=== PATIENT | female | born 1950 | race Two or more races ===

== ENCOUNTER 2017-12-18 06:58 | Inpatient (IN) | payer OTHER ==
[~2017-12-18] VITALS: Ht 137.2 cm; Wt 59.4 kg
[~2017-12-18 06:58] MED LIST: BACITRACIN 50000 UNITS/VIAL ONE; BUPIVACAINE 0.5 % PF 150 MG/30 ML VIAL ONE; KETOROLAC TROMETHAMINE INJ 30 MG/ML VIAL ONE
[2017-12-18] MEDS ORDERED: CLINDAMYCIN IV RTU IN D5W 50 ML ONE (07:21)
[2017-12-18] MEDS ORDERED: oxyCODONE HCL SR 10MG TAB.SR.12H PO ONE (07:21)
[2017-12-18] MEDS ORDERED: ACETAMINOPHEN 325 MG TABLET ONE (07:21)
[2017-12-18] MEDS ORDERED: CELECOXIB 100 MG CAPSULE ONE (07:21)
[2017-12-18] MEDS ORDERED: TRANEXAMIC ACID 3,000 MG in SODIUM CHLORIDE IRRIG SOLUTION 70 ML IR ONE (07:30)
[2017-12-18] MEDS ORDERED: FENTANYL PF 100MCG/2ML AMPUL ONE (08:26)
[2017-12-18] MEDS ORDERED: CLINDAMYCIN 900 MG/6 ML VIAL ONE (08:27)
[2017-12-18 11:00] VITALS: BP 108/68
[2017-12-18] MEDS ORDERED: TYLENOL 650 MG TABLET PO PRN (12:30)
[2017-12-18] MEDS ORDERED: SENOKOT 8.6 MG TABLET PO PRN (12:30)
[2017-12-18] MEDS ORDERED: COLACE 250 MG CAPSULE PO PRN (12:30)
[2017-12-18] MEDS ORDERED: DULCOLAX 10 MG/SUPP.RECT RC PRN (12:30)
[2017-12-18] MEDS ORDERED: ZOFRAN 4mg/2ML IV PRN (12:30)
[2017-12-18] MEDS ORDERED: HYDROCODONE/APAP 5/325MG 1 EACH TABLET PO PRN (12:30)
[2017-12-18] MEDS ORDERED: LOSA100T15 PO (12:39)
[2017-12-18] MEDS ORDERED: HYDR-548 PO (12:39)
[2017-12-18] MEDS ORDERED: PRAV10TA40 PO (12:39)
[2017-12-18] MEDS ORDERED: DILT240C53 PO (12:39)
[2017-12-18] MEDS ORDERED: ONDANSETRON HCL/PF 4 MG/2 ML VIAL IV PRN (13:00)
[2017-12-18] MEDS ORDERED: PROMETHAZINE HCL 25 MG/ML AMPUL IM PRN (13:00)
[2017-12-18] MEDS ORDERED: BISACODYL SUPP (10 MG) 10 MG/SUPP.RECT SUPP.RECT RC PRN (13:00)
[2017-12-18] MEDS ORDERED: MORPHINE SULFATE INJ 4 MG/ML DISP.SYRIN IM PRN (13:00)
[2017-12-18] MEDS ORDERED: LEVOFLOXACIN 500 MG /D5W 100ML 500 MG in PREMIX 1 EA IV ONE (13:00)
[2017-12-18] MEDS ORDERED: MAGNESIUM HYDROXIDE 30 ML UDC PO PRN (13:00)
[2017-12-18] MEDS ORDERED: MAG HYDROX/AL HYDROX/SIMETH 30 ML UDC PO PRN (13:00)
[2017-12-18] MEDS ORDERED: NALOXONE HCL 0.4 MG/ML AMPUL IV PRN (13:00)
[2017-12-18] MEDS ORDERED: diphenhydrAMINE HCL 25 MG CAPSULE PO PRN (13:00)
[2017-12-18] MEDS ORDERED: MENTHOL/CETYLPYRD (CEPACOL) 1 LOZ LOZENGE MM PRN (13:00)
[2017-12-18] MEDS ORDERED: CLONIDINE HCL 0.1 MG TABLET PO PRN (13:00)
[2017-12-18] MEDS ORDERED: oxyCODONE IR immediate release 5 MG PO PRN (13:00)
[2017-12-18] MEDS: HYDROMORPHONE 1 MG/1 ML DISP.SYRIN IV PRN ×3 (13:12→23:46)
[2017-12-18] MEDS: IV D5/0.45 NACL 1,000 ML IV PRN ×2 (14:26→21:06)
[2017-12-18 16:00] VITALS: BP 117/66
[2017-12-18] MEDS: DOCUSATE SODIUM 100 MG CAPSULE PO SCH (16:44)
[2017-12-18] MEDS: CLINDAMYCIN 600 MG in IV D5W 50 ML IV SCH ×2 (16:44→21:06)
[2017-12-18 20:00] VITALS: BP 115/69
[2017-12-18] MEDS: PANTOPRAZOLE 40 MG TABLET.DR PO SCH (21:06)
[2017-12-18] MEDS ORDERED: AMBIEN 5 MG TABLET PO PRN (22:00)
[2017-12-18] MEDS ORDERED: ALPRAZOLAM 0.25 MG TABLET PO PRN (23:00)
[2017-12-19] MEDS: CLINDAMYCIN 600 MG in IV D5W 50 ML IV SCH (02:11)
[2017-12-19 06:33] LABS: BASOPHILS % (AUTO) 0.1 % (0.0-2.0); HEMATOCRIT 31 % (33-45); HEMOGLOBIN 10.5 g/dL (11.5-14.8); LYMPHOCYTES # (AUTO) 0.8 /CMM (0.8-4.8); LYMPHOCYTES % (AUTO) 5.5 % (20.0-44.0); MEAN CORPUSCULAR HEMOGLOBIN 30 PG (26.0-33.0); MEAN CORPUSCULAR HGB CONC 34 g/dl (31.0-36.0); MEAN CORPUSCULAR VOLUME 87 fL (82-100); MONOCYTES # (AUTO) 0.8 /CMM (0.1-1.30); MONOCYTES % (AUTO) 5.6 % (2.0-12.0); NEUTROPHILS # (AUTO) 13.1 /CMM (1.8-8.9); NEUTROPHILS % (AUTO) 88.8 % (43.0-81.0); PLATELET COUNT (AUTO) 137 /CMM (150-450); RED BLOOD CELL COUNT(AUTO) 3.52 MIL/uL (4.0-5.2); WHITE BLOOD COUNT (AUTO) 14.7 K/uL (4.3-11.0)
[2017-12-19] MEDS: HYDROMORPHONE 1 MG/1 ML DISP.SYRIN IV PRN ×3 (06:37→20:44)
[2017-12-19 08:00] VITALS: BP 122/72
[2017-12-19] MEDS: DOCUSATE SODIUM 100 MG CAPSULE PO SCH ×2 (08:32→16:55)
[2017-12-19] MEDS: ASPIRIN 325 MG TABLET PO SCH ×2 (08:32→16:55)
[2017-12-19] MEDS: ESCITALOPRAM OXALATE (10 MG) 10 MG TABLET PO SCH (08:33)
[2017-12-19] MEDS: HYDROCODONE/APAP 10/325MG 1 EA TABLET PO PRN ×3 (08:40→15:28)
[2017-12-19 10:18] VITALS: BP 122/72
[2017-12-19 16:00] VITALS: BP 151/97
[2017-12-19 20:00] VITALS: BP 156/81
[2017-12-19] MEDS: PANTOPRAZOLE 40 MG TABLET.DR PO SCH (21:31)
[2017-12-19] MEDS ORDERED: ATORVASTATIN 10 MG TABLET PO SCH (22:00)
[2017-12-19] MEDS ORDERED: PRAVASTATIN SODIUM 20 MG TABLET PO SCH (22:00)
[2017-12-20] MEDS: HYDROMORPHONE 1 MG/1 ML DISP.SYRIN IV PRN ×2 (03:49→12:05)
[2017-12-20 03:52] VITALS: BP 157/89
[2017-12-20 06:00] VITALS: BP 140/93
[2017-12-20] MEDS: HYDROCODONE/APAP 10/325MG 1 EA TABLET PO PRN (07:05)
[2017-12-20 08:00] VITALS: BP 165/96
[2017-12-20] MEDS: DOCUSATE SODIUM 100 MG CAPSULE PO SCH (08:21)
[2017-12-20] MEDS: ASPIRIN 325 MG TABLET PO SCH (08:21)
[2017-12-20 08:22] VITALS: BP 165/96
[2017-12-20] MEDS: ESCITALOPRAM OXALATE (10 MG) 10 MG TABLET PO SCH (08:22)
[2017-12-20] MEDS ORDERED: DILTIAZEM HCL CD 240 MG PO SCH (09:00)
[2017-12-20] MEDS ORDERED: LOSARTAN POTASSIUM 50 MG TABLET PO SCH (09:00)
== END 2017-12-20 15:00 | disposition home health service (06) | DRG 470 ==
LOC: DS 06:58 → MED 12:00
PROVIDERS: ADMIT Specialist; ATTEND Specialist
PROC: 0SRC0J9 Replacement of Right Knee Joint with Synthetic Substitute, Cemented, Open Approach (ICD-10-PCS; principal; 2017-12-18 09:05)
DX: M17.11 Unilateral primary osteoarthritis, right knee (principal); E66.9 Obesity, unspecified; F32.9 Major depressive disorder, single episode, unspecified; I10 Essential (primary) hypertension; Z68.31 Body mass index [BMI] 31.0-31.9, adult; E78.00 Pure hypercholesterolemia, unspecified; J31.0 Chronic rhinitis; F41.9 Anxiety disorder, unspecified
CPT/HCPCS: 36415; 85025-TC; 86850-TC; 86921-TC; 87081-TC; 97110-TC; 97116-TC; 97530-TC; 97760-TC; A4216; A4217; A6402; C1713; J1100; J1170; J1885; J1956; J2405; J2704; J3010; J3490; J7060; J7120; Z7610

== ENCOUNTER 2018-06-18 16:45 | Inpatient (IN) | payer OTHER ==
[~2018-06-18] VITALS: Ht 137.2 cm; Wt 48.8 kg
[~2018-06-18 16:45] MED LIST changes: -BACITRACIN 50000 UNITS/VIAL ONE; -BUPIVACAINE 0.5 % PF 150 MG/30 ML VIAL ONE; +DILT240C53 PO; +HYDR-548 PO; -KETOROLAC TROMETHAMINE INJ 30 MG/ML VIAL ONE; +LOSA100T15 PO; +PRAV10TA40 PO
--- NOTE | 2018-06-18 16:47 | NUR ---
PT AMBULATORY TO ER BED 08. WAS SENT BY ORTHO DOCTOR AFTER ABNORMAL EKG. PT STATES HAVING ON AND OFF CHEST PAIN FOR 5 DAYS NOW BUT NOT SURE WEATHER PAIN IS FROM HER ACID REFLUX AFTER EATING GREEN MANGOES. GOWNED AND PLACED ON MONITOR. HYPERTENSIVE TRANSITIONAL CARE NURSE. AWAITING MD KASPER.
[2018-06-18] MEDS ORDERED: ASPIRIN 325 MG TABLET PO ONE (17:00)
[2018-06-18] MEDS ORDERED: NITROGLYCERIN PACKET 1 GM PACKET TD ONE (17:00)
--- NOTE | 2018-06-18 17:00 | NUR ---
DR LIZAMA AT BEDSIDE FOR EVAL.
[2018-06-18] MEDS ORDERED: PANT20TA2 PO (17:18)
[2018-06-18] MEDS ORDERED: ESCI5TAB PO (17:18)
--- NOTE | 2018-06-18 17:20 | NUR ---
IV LINE STARTED. BLOOD DRAWN AND SENT TO LAB.
[2018-06-18 17:29] LABS: BASOPHILS % (AUTO) 0.5 % (0.0-2.0); HEMATOCRIT 44 % (33-45); HEMOGLOBIN 14.8 g/dL (11.5-14.8); LYMPHOCYTES # (AUTO) 1.7 /CMM (0.8-4.8); LYMPHOCYTES % (AUTO) 22.5 % (20.0-44.0); MEAN CORPUSCULAR HEMOGLOBIN 29 PG (26.0-33.0); MEAN CORPUSCULAR HGB CONC 33 g/dl (31.0-36.0); MEAN CORPUSCULAR VOLUME 87 fL (82-100); MONOCYTES # (AUTO) 0.5 /CMM (0.1-1.30); MONOCYTES % (AUTO) 6.2 % (2.0-12.0); NEUTROPHILS # (AUTO) 5.2 /CMM (1.8-8.9); NEUTROPHILS % (AUTO) 67.8 % (43.0-81.0); PLATELET COUNT (AUTO) 352 /CMM (150-450); RDW COEFFICIENT OF VARIATION 11.9 (11.5-15.0); RED BLOOD CELL COUNT(AUTO) 5.07 MIL/uL (4.0-5.2); WHITE BLOOD COUNT (AUTO) 7.6 K/uL (4.3-11.0)
[2018-06-18 17:42] LABS: CALCIUM, SERUM 9.5 mg/dL (8.5-10.1); CARBON DIOXIDE 27 mmol/L (21-32); CHLORIDE 103 mmol/L (98-107); CREATININE 0.9 mg/dL (0.6-1.3); GLUCOSE 112 mg/dL (74-106); POTASSIUM 3.4 mmol/L (3.5-5.1); SODIUM SERUM 137 mmol/L (136-145); UREA NITROGEN, BLOOD 18 mg/dL (7-18)
[2018-06-18 17:43] LABS: INR 0.9 (0.85-1.15)
[2018-06-18 17:48] LABS: ALANINE AMINOTRANSFERASE 32 U/L (12-78); ALBUMIN 4.3 g/dL (3.4-5.0); ALKALINE PHOSPHATASE 78 U/L (46-116); ASPARTATE AMINOTRANSFERASE 23 U/L (15-37); BILIRUBIN,DIRECT 0.1 mg/dL (0.0-0.2); BILIRUBIN,TOTAL 0.3 mg/dL (0.2-1.0); TOTAL PROTEIN, SERUM 8.4 g/dL (6.4-8.2); TROPONIN I < 0.017 ng/mL (0.00-0.056)
[2018-06-18] MEDS ORDERED: ASPIRIN 325 MG TABLET ONE (17:50)
[2018-06-18] MEDS ORDERED: NITROGLYCERIN PACKET 1 GM PACKET ONE (17:50)
--- NOTE | 2018-06-18 19:07 | NUR ---
Tl petit in [facility] - 06/18/18 at 1921 by DELMA CALLED [facility], CENTERLESS GRINDER TENDER DR CAPRICE ROSA.
--- NOTE | 2018-06-18 19:17 | NUR ---
REPORT GIVEN TO LYNSEY MARQUES. PT AWAITING TRANSFER T FLOOR.
--- NOTE | 2018-06-18 19:21 | NUR ---
CALLED [facility] FLOORING INSTALLER WAS PAGED.
[2018-06-18 20:00] VITALS: BP 166/102
--- NOTE | 2018-06-18 20:48 | NUR ---
PT TRANSP. WITH STABLE CONDITION. NAD.
[2018-06-18] MEDS ORDERED: hydrALAZINE HCL IV 20 MG VIAL IV PRN (21:00)
[2018-06-18] MEDS ORDERED: Z GUARD REMEDY 2 OZ OINT TP PRN (21:00)
[2018-06-18] MEDS ORDERED: MAG HYDROX/AL HYDROX/SIMETH 30 ML UDC PO PRN (21:00)
[2018-06-18] MEDS ORDERED: POTASSIUM CHLORIDE 20 MEQ TAB.PRT.SR PO ONE (21:00)
[2018-06-18] MEDS ORDERED: ONDANSETRON HCL/PF 4 MG/2 ML VIAL IVP PRN (21:00)
[2018-06-18] MEDS ORDERED: MORPHINE SULFATE INJ 2 MG/ML DISP.SYRIN IV PRN (21:00)
[2018-06-18] MEDS ORDERED: MAGNESIUM HYDROXIDE 30 ML UDC PO PRN (21:00)
[2018-06-18] MEDS ORDERED: ACETAMINOPHEN 325 MG TABLET PO PRN (21:00)
[2018-06-18] MEDS ORDERED: HYDROCODONE/APAP 5/325MG 1 EACH TABLET PO PRN (21:00)
[2018-06-18] MEDS ORDERED: NITROGLYCERIN 0.4 MG/TAB BOTTLE SL PRN (21:00)
[2018-06-18] MEDS ORDERED: ENOXAPARIN SODIUM 40 MG/0.4 ML DISP.SYRIN SQ SCH (21:00)
[2018-06-19] VITALS: BP 122/80
[2018-06-19 04:00] VITALS: BP 135/93
[2018-06-19 07:10] LABS: CALCIUM, SERUM 8.9 mg/dL (8.5-10.1); CREATININE 0.7 mg/dL (0.6-1.3); MAGNESIUM 2.4 mg/dL (1.8-2.4); PHOSPHORUS 3.1 mg/dL (2.5-4.9); POTASSIUM 3.1 mmol/L (3.5-5.1)
--- NOTE | 2018-06-19 07:15 | NUR ---
TELE/RN NOTES RECEIVED PT IN BED, A/O X4. TOLERATING ROOM AIR WELL, NO SOB NOTED. SINUS TACHY, HR 103 ON TELE MONITOR. DENIES ANY PAIN. WITH INTACT RAC SL. NO SIGNS OF INFECTION NOTED. HOB ELEVATED. SAFETY MEASURES IN PLACED. CALL LIGHT WITHIN REACH. WILL CONT TO MONITOR
[2018-06-19 07:28] LABS: THYROID STIMULATING HORMONE 2.408 uIU/mL (0.358-3.74)
[2018-06-19] MEDS ORDERED: PANTOPRAZOLE 40 MG TABLET.DR PO SCH (07:30)
[2018-06-19 07:53] LABS: BASOPHILS % (AUTO) 0.3 % (0.0-2.0); EOSINOPHILS % (AUTO) 3.3 % (0.0-6.0); HEMATOCRIT 43 % (33-45); HEMOGLOBIN 14.4 g/dL (11.5-14.8); LYMPHOCYTES # (AUTO) 2.2 /CMM (0.8-4.8); LYMPHOCYTES % (AUTO) 30.2 % (20.0-44.0); MEAN CORPUSCULAR HEMOGLOBIN 30 PG (26.0-33.0); MEAN CORPUSCULAR HGB CONC 34 g/dl (31.0-36.0); MEAN CORPUSCULAR VOLUME 89 fL (82-100); MONOCYTES # (AUTO) 0.5 /CMM (0.1-1.30); MONOCYTES % (AUTO) 7.4 % (2.0-12.0); NEUTROPHILS # (AUTO) 4.3 /CMM (1.8-8.9); NEUTROPHILS % (AUTO) 58.8 % (43.0-81.0); PLATELET COUNT (AUTO) 185 /CMM (150-450); RDW COEFFICIENT OF VARIATION 12.9 (11.5-15.0); RED BLOOD CELL COUNT(AUTO) 4.77 MIL/uL (4.0-5.2); WHITE BLOOD COUNT (AUTO) 7.3 K/uL (4.3-11.0)
[2018-06-19 08:00] VITALS: BP 151/101
[2018-06-19] MEDS ORDERED: ESCITALOPRAM OXALATE (10 MG) 10 MG TABLET PO SCH (09:00)
[2018-06-19] MEDS ORDERED: DILTIAZEM HCL CD 240 MG PO SCH (09:00)
[2018-06-19] MEDS ORDERED: LOSARTAN POTASSIUM 50 MG TABLET PO SCH (09:00)
[2018-06-19] MEDS ORDERED: POTASSIUM CHLORIDE 20 MEQ TAB.PRT.SR PO ONE (11:00)
[2018-06-19 12:00] VITALS: BP 131/84
[2018-06-19 12:56] VITALS: BP 130/95
[2018-06-19] MEDS ORDERED: AMLODIPINE BESYLATE 10 MG TABLET PO SCH (13:00)
--- NOTE | 2018-06-19 14:00 | NUR ---
RN NOTES RECEIVED ORDERS FROM FRANKI MOONEY: D/C TO HOME. PLEASE CALL IN TO PT'S PHARMACY FOR NEW MEDICINE: NORVASC 10 MG PO Q DAILY. FOLLOW UP WITH DR MANRIQUEZ IN ONE WEEK. CONTINUE HOME MEDICINE.
--- NOTE | 2018-06-19 14:15 | NUR ---
RN NOTES CALLED [facility] IN [facility] , SPOKE WITH GERMAN (PHARMACIST), NOTIFIED RE: NEW PRESCRIPTION: NORVASC 10 MG PO Q DAILY. PER PT, PT CALLED DR MANRIQUEZ'S CLINIC TO MAKE APPT, AWAITING TO CALL BACK.
--- NOTE | 2018-06-19 14:43 | NUR ---
Patient is alert and pleasant.Lives at home with friends/roommates.She is ambulatory and independent with adl's. Has a cane and walker,was previously on service with [facility] [phone]. She plan to return home once discharge. Addendum: 06/19/18 at 1444 by HAWK AVERY RN Amended: Links added.
--- NOTE | 2018-06-19 14:48 | NUR ---
D/C NOTES D/C PT TO HOME IN STABLE CONDITION ASSISTED BY ERIKA GRANT. NO SOB NOTED. DENIES ANY PAIN. RAC SL DISCONTINUED. PRESSURE DRESSING IN PLACED. NO SIGNS OF INFECTION/BLEEDING. D/C INSTRUCTIONS GIVEN, PT VERBALIZED UNDERSTANDING.PT INSTRUCTED AND AWARE TO FOLLOW UP WITH DR MANRIQUEZ (BIOMECHANICAL ENGINEER) IN 1 WEEK. CLINIC'S PHONE NUMBER AND ADDRESS GIVEN. SAFETY MEASURES OBSERVED AT ALL TIMES. D/C
[2018-06-19] MEDS ORDERED: AMLO10TA4 PO (15:59)
[2018-06-19] MEDS ORDERED: PRAVASTATIN SODIUM 20 MG TABLET PO SCH (22:00)
[2018-06-19] MEDS ORDERED: ATORVASTATIN 10 MG TABLET PO SCH (22:00)
== END 2018-06-19 15:41 | disposition home or self-care (01) | DRG 392 ==
LOC: ER 16:47 → TELE1 17:54 → MEDSG1 06-19 12:40
PROVIDERS: ADMIT Internal Medicine; ATTEND Internal Medicine
DX: K21.9 Gastro-esophageal reflux disease without esophagitis (principal); E78.5 Hyperlipidemia, unspecified; I25.10 Atherosclerotic heart disease of native coronary artery without angina pectoris; E87.6 Hypokalemia; I10 Essential (primary) hypertension; Z88.0 Allergy status to penicillin; R94.31 Abnormal electrocardiogram [ECG] [EKG]
CPT/HCPCS: 36415; 80048-TC; 80061-TC; 80076-TC; 83735-TC; 84100-TC; 84443-TC; 84484-TC; 85025-TC; 85730-TC; 87081-TC; 93307-TC; A4606; J0360; J1650; Z7610

== ENCOUNTER 2019-01-14 09:06 | Inpatient (IN) | payer OTHER ==
[~2019-01-14] VITALS: Ht 137.2 cm; Wt 50.8 kg
[~2019-01-14 09:06] MED LIST changes: +AMLO10TA4 PO; +ESCI5TAB PO; -HYDR-548 PO; -LOSA100T15 PO; +LOSA100T31 PO; +PANT20TA2 PO
[2019-01-14 09:37] LABS: BASOPHILS % (AUTO) 0.6 % (0.0-2.0); EOSINOPHILS % (AUTO) 4.3 % (0.0-6.0); HEMATOCRIT 46 % (33-45); HEMOGLOBIN 15.6 g/dL (11.5-14.8); LYMPHOCYTES # (AUTO) 2.2 /CMM (0.8-4.8); LYMPHOCYTES % (AUTO) 32.9 % (20.0-44.0); MEAN CORPUSCULAR HGB CONC 34 g/dl (31.0-36.0); MEAN CORPUSCULAR VOLUME 87 fL (82-100); MONOCYTES # (AUTO) 0.4 /CMM (0.1-1.30); MONOCYTES % (AUTO) 6.3 % (2.0-12.0); NEUTROPHILS # (AUTO) 3.7 /CMM (1.8-8.9); NEUTROPHILS % (AUTO) 55.9 % (43.0-81.0); PLATELET COUNT (AUTO) 303 /CMM (150-450); RED BLOOD CELL COUNT(AUTO) 5.26 MIL/uL (4.0-5.2); WHITE BLOOD COUNT (AUTO) 6.6 K/uL (4.3-11.0)
--- NOTE | 2019-01-14 09:39 | NUR ---
patient presented to the ER c/o chest pain while she was in the restoration, alert and oriented x 4, verbally responsive and able to make needs known. on room air, breathing evenly and unlabored. connected to the monitor and puls eox. kept comfortable. will continue to monitor accordingly.
[2019-01-14 09:47] LABS: CALCIUM, SERUM 10.6 mg/dL (8.5-10.1); CREATININE 0.9 mg/dL (0.6-1.3); POTASSIUM 3.2 mmol/L (3.5-5.1)
[2019-01-14 10:00] LABS: ALBUMIN 4.6 g/dL (3.4-5.0); BILIRUBIN,DIRECT 0.1 mg/dL (0.0-0.2); BILIRUBIN,TOTAL 0.4 mg/dL (0.2-1.0); TOTAL PROTEIN, SERUM 8.8 g/dL (6.4-8.2)
[2019-01-14] MEDS ORDERED: DICL100T85 PO (10:31)
[2019-01-14] MEDS ORDERED: ALEN70TA6 PO (10:31)
[2019-01-14] MEDS ORDERED: AMLO10TA7 PO (10:31)
[2019-01-14] MEDS ORDERED: HYDR-3980 PO (10:31)
[2019-01-14] MEDS ORDERED: ASPI-1169 PO (10:32)
[2019-01-14] MEDS ORDERED: MULT-447 PO (10:32)
[2019-01-14] MEDS ORDERED: ASCO500T9 PO (10:32)
[2019-01-14] MEDS ORDERED: ASPIRIN 325 MG TABLET ONE (10:51)
[2019-01-14] MEDS ORDERED: ASPIRIN 325 MG TABLET PO ONE (11:00)
--- NOTE | 2019-01-14 11:49 | NUR ---
BED 317-1
--- NOTE | 2019-01-14 12:08 | NUR ---
BED 113-1 TELE
[2019-01-14] MEDS ORDERED: MAG HYDROX/AL HYDROX/SIMETH 30 ML UDC PO PRN (13:30)
[2019-01-14] MEDS ORDERED: MAGNESIUM HYDROXIDE 30 ML UDC PO PRN (13:30)
[2019-01-14] MEDS ORDERED: ZOLPIDEM TARTRATE 5 MG TABLET PO PRN (13:30)
[2019-01-14] MEDS ORDERED: ACETAMINOPHEN 325 MG TABLET PO PRN (13:30)
[2019-01-14] MEDS ORDERED: HYDROCODONE/APAP 5/325MG 1 EACH TABLET PO PRN (13:30)
[2019-01-14] MEDS ORDERED: ONDANSETRON HCL/PF 4 MG/2 ML VIAL IVP PRN (13:30)
[2019-01-14] MEDS ORDERED: Z GUARD REMEDY 2 OZ OINT TP PRN (13:30)
--- NOTE | 2019-01-14 13:33 | NUR ---
GOT 325-1
--- NOTE | 2019-01-14 13:40 | NUR ---
BELLY DUMP DRIVER NOTES RECEIVED REPORT FROM ED NURSE FOR VERO.
--- NOTE | 2019-01-14 13:45 | NUR ---
transferred patient via gurney accompanied by RN and emt in no apparent distress noted.
--- NOTE | 2019-01-14 13:45 | NUR ---
MANAGER MEDICAL INITIAL NOTE RECEIVED PT AOX4. ON ROOM AIR, TOLERATING WELL. NO SOB NOTED. RESPIRATIONS EVEN AND UNLABORED. 0/10 PAIN REPORTED BY PATIENT, NO CHEST PAIN. PLACED PATIENT ON TELE MONITOR, SR WITH HR 95. IV SITE RAC 20G SALINE LOCK, CDI. INITIAL ASSESSMENTS DONE AND RECORDED. SKIN INTACT. CALL LIGHT WITHIN REACH. BED LOCKED AND IN LOWEST POSITION. WILL CONTINUE TO MONITOR THROUGHOUT SHIFT.
[2019-01-14] MEDS ORDERED: IV NS 0.9% 1,000 ML IV PRN (14:29)
[2019-01-14 14:55] LABS: MAGNESIUM 2.3 mg/dL (1.8-2.4); PHOSPHORUS 3.9 mg/dL (2.5-4.9); THYROID STIMULATING HORMONE 2.131 uIU/mL (0.358-3.74)
[2019-01-14 16:00] VITALS: BP 135/81
[2019-01-14] MEDS: POTASSIUM CHLORIDE 20 MEQ TAB.PRT.SR PO SCH ×5 (16:00→21:53)
--- NOTE | 2019-01-14 16:00 | NUR ---
LEAD MILITARY ANALYST NOTES PATIENT LEFT WITH RADIOLOGY TEAM AND RN FOR CT ANGIOGRAPHY.
[2019-01-14] MEDS: METOPROLOL TARTRATE 50 MG TABLET PO SCH ×2 (16:44→20:40)
[2019-01-14] MEDS ORDERED: IV NS 0.9% 500 ML IV ONE (17:00)
[2019-01-14] MEDS ORDERED: METOPROLOL TARTRATE INJ 5 MG/5 ML AMPUL IVP ONE (17:00)
[2019-01-14] MEDS ORDERED: NITROGLYCERIN 0.4 MG/TAB BOTTLE SL ONE (17:00)
[2019-01-14] MEDS ORDERED: IOHEXOL-350 100 ML VIAL IV ONE (17:17)
[2019-01-14] MEDS ORDERED: CT SWABBABLE VALVE TRANS SET 1 EA INFUS.SET MC ONE (17:18)
[2019-01-14] MEDS ORDERED: IV NS 0.9% 250 ML IV ONE (17:18)
[2019-01-14] MEDS ORDERED: METOPROLOL TARTRATE INJ 5 MG/5 ML AMPUL ONE ×3 (17:24→17:56)
--- NOTE | 2019-01-14 18:20 | NUR ---
CTA Explained to pt the procedure and verbalized understanding. VS stable, no chest pain. given total dose of 50 mg Metoprolol IV, HR remained on high 70's, did not go down less than 75. Tolerated the procedure well. VS stable. No CP, made comfortable
--- NOTE | 2019-01-14 19:00 | NUR ---
CARDIAC MONITOR TECHNICIAN CLOSING NOTES PT AWAKE, ALERT AND ORIENTED X4. ON ROOM AIR, TOLERATING WELL. NO SOB NOTED. RESPIRATIONS EVEN AND UNLABORED. 0/10 PAIN REPORTED BY PATIENT, NO CHEST PAIN THROUGHOUT SHIFT. PATIENT ON TELE MONITOR, SR WITH HR 80S. IV SITE RAC 20G SALINE LOCK, CDI. ALL NEEDS MET. CALL LIGHT WITHIN REACH. BED LOCKED AND IN LOWEST POSITION. ENDORSED TO HRBP NURSE FOR VERO.
[2019-01-14 20:00] VITALS: BP 121/76
--- NOTE | 2019-01-14 20:01 | NUR ---
RN NOTES PATIENT LEFT UNIT WITH FAMILY AND AMBULANCE STAFF VIA EUNICE. SAFETY MEASURES PROVIDED. REMOVED IV ACCESS ON RIGHT FOREARM WITH NO COMPLICATIONS, VITAL SIGNS UPON DISCHARGE IS STABLE AND WNL. PATIENT DISCHARGED Addendum: 01/14/19 at 2002 by LUIS MORELAND RN ERROR - CHARTING NOT FOR THIS PATIENT.
[2019-01-14] MEDS ORDERED: DICLOFENAC SODIUM 25 MG TABLET.DR PO PRN (22:00)
[2019-01-15] VITALS: BP 110/60
[2019-01-15 04:00] VITALS: BP 115/70
--- NOTE | 2019-01-15 07:05 | NUR ---
COLOR ADVISER OPENING NOTES RECEIVED PT LYING ON BED.ALERT/ORIENTED X4.ON TELE HR IS 60;S WITH SR.ON ROOM AIR,TOLERATING WELL.NO SOB AND ACUTE DISTRESS NOTED.IV LINE IS ON RIGHT AC G20,SITE IS CLEAN,DRY AND INTACT.NO INFILTRATION NOTED.SAFETY IS MAINTAINED FRANCES LL TIMES.BED IS IN LOW POSITION AND LOCKED.CALL LIGHT IS WITHIN REACH.WILL CONTINUE TO MONITOR THE PT CLOSELY.
[2019-01-15 07:37] LABS: BASOPHILS % (AUTO) 0.4 % (0.0-2.0); EOSINOPHILS % (AUTO) 3.7 % (0.0-6.0); HEMATOCRIT 41 % (33-45); HEMOGLOBIN 13.8 g/dL (11.5-14.8); LYMPHOCYTES # (AUTO) 1.9 /CMM (0.8-4.8); LYMPHOCYTES % (AUTO) 23.2 % (20.0-44.0); MEAN CORPUSCULAR HGB CONC 34 g/dl (31.0-36.0); MEAN CORPUSCULAR VOLUME 88 fL (82-100); MONOCYTES # (AUTO) 0.5 /CMM (0.1-1.30); MONOCYTES % (AUTO) 6.1 % (2.0-12.0); NEUTROPHILS # (AUTO) 5.5 /CMM (1.8-8.9); NEUTROPHILS % (AUTO) 66.6 % (43.0-81.0); PLATELET COUNT (AUTO) 279 /CMM (150-450); WHITE BLOOD COUNT (AUTO) 8.2 K/uL (4.3-11.0)
[2019-01-15 07:56] LABS: CALCIUM, SERUM 9.4 mg/dL (8.5-10.1); PHOSPHORUS 3.7 mg/dL (2.5-4.9); POTASSIUM 4.2 mmol/L (3.5-5.1)
[2019-01-15 08:00] VITALS: BP 123/74
[2019-01-15 08:00] LABS: THYROID STIMULATING HORMONE 1.609 uIU/mL (0.358-3.74)
[2019-01-15 08:03] LABS: MAGNESIUM 2.2 mg/dL (1.8-2.4)
[2019-01-15 08:39] VITALS: BP 123/74
[2019-01-15] MEDS: METOPROLOL TARTRATE 50 MG TABLET PO SCH (08:39)
[2019-01-15] MEDS ORDERED: DILTIAZEM HCL CD 240 MG PO SCH (09:00)
[2019-01-15] MEDS ORDERED: MULTIVIT W/MINERALS 1 TAB TABLET PO SCH (09:00)
[2019-01-15] MEDS ORDERED: AMLODIPINE BESYLATE 10 MG TABLET PO SCH (09:00)
[2019-01-15] MEDS ORDERED: ASCORBIC ACID 500 MG TABLET PO SCH (09:00)
[2019-01-15] MEDS ORDERED: ASPIRIN 81 MG TAB.CHEW PO SCH (09:00)
[2019-01-15] MEDS ORDERED: ESCITALOPRAM OXALATE (10 MG) 10 MG TABLET PO SCH (09:00)
--- NOTE | 2019-01-15 14:46 | NUR ---
MS EXPANSION JOINT FINISHER NOTES ORDERED TO D/C HOME.ALL THE DISCHARGE MEDICATIONS ARE DISCUSSED WITH PT,VERBALIZED UNDERSTOOD.IV LINE FROM RIGHT AC G20 IS REMOVED,NO BLEEDING NOTED.PRESSURE DRESSING APPLIED.SKIN ASSESSMENT IS DONE AND IT IS INTACT.VITAL SIGNS CHECKED AND RECORDED.ON ROOM AIR,TOLERATING WELL. RESEARCH ASSOC ASSIST WITH THE PT TO THE PARKING LOT AND LEFT VIA UBER.NO COMPLICATIONS NOTED.
[2019-01-15] MEDS ORDERED: ATORVASTATIN 10 MG TABLET PO SCH (22:00)
[2019-01-20] MEDS ORDERED: ALENDRONATE 70 MG TABLET PO SCH (07:30)
== END 2019-01-15 14:45 | disposition home or self-care (01) | DRG 313 ==
LOC: ER 09:10 → TELE1 13:18 → MEDSG1 01-15 08:46
PROVIDERS: ADMIT Student in an Organized Health Care Education/Training Program; ATTEND Internal Medicine
DX: R07.89 Other chest pain (principal); E87.6 Hypokalemia; E78.5 Hyperlipidemia, unspecified; E83.52 Hypercalcemia; I10 Essential (primary) hypertension; Z96.651 Presence of right artificial knee joint; Z82.3 Family history of stroke; Z88.0 Allergy status to penicillin
CPT/HCPCS: 36415; 71045-TC; 75574; 80048-TC; 80061-TC; 80076-TC; 83735-TC; 84100-TC; 84439-TC; 84443-TC; 84484-TC; 85025-TC; 87081-TC; 93307-TC; A6402; G0378; J3490; J7050; Q9967